=== PATIENT | female | born 1985 | race Caucasian/White ===

== ENCOUNTER 2020-12-31 10:12 | Emergency (ER) | payer OTHER, MEDICAID ==
[~2020-12-31] VITALS: Ht 154.9 cm; Wt 85.7 kg
[~2020-12-31 10:12] MED LIST: PREN-385 PO
[2020-12-31 10:13] VITALS: BP 136/69
--- NOTE | 2020-12-31 10:24 | NUR ---
Ivania jolley in [facility] - 12/31/20 at 1025 by [email or web address] LETTY
--- NOTE | 2020-12-31 10:49 | NUR ---
NO NURSING INTERVENTIONS NEEDED, NO COMPLETE ASSESSMENT NECESSARY.
[2020-12-31] MEDS ORDERED: ONDA-24 SL (11:06)
[2020-12-31 11:19] VITALS: BP 130/68
== END 2020-12-31 11:19 | disposition home or self-care (01) ==
LOC: MED 10:12
DX: K80.20 Calculus of gallbladder without cholecystitis without obstruction (principal); K57.32 Diverticulitis of large intestine without perforation or abscess without bleeding; K76.0 Fatty (change of) liver, not elsewhere classified; Z79.899 Other long term (current) drug therapy; Z88.8 Allergy status to other drugs, medicaments and biological substances
CPT/HCPCS: 99283